=== PATIENT | female | born 1960 | race African-American/Black ===

== ENCOUNTER → 2018-05-28 | Outpatient (CLI) | payer OTHER | LOC: NUC 08:22 | DX: I50.30 Unspecified diastolic (congestive) heart failure (principal) ==

== ENCOUNTER 2019-12-25 08:08 | Day surgery (SDC) | payer OTHER ==
[~2019-12-25] VITALS: Ht 162.6 cm; Wt 77.1 kg
[~2019-12-25 08:08] MED LIST: AMARYL4 MG PO; AMLODIPINE BESY10 MG PO; CELEXA 10 MG TA10 M1 PO; CRESTOR40 MG PO; FISH OIL 1,0001 EAC9 PO; FLONASE 0.05%50 MCG NARES; LISINOPRIL40 MG PO; LORATIDINE 10 M10 M1 PO; METFORMIN HCL500 M3 PO; PLAVIX 75 MG TA75 MG PO; SINGULAIR 10 MG10 M1 PO; TRESIBA100 UNIT/1 SUBQ; VENTOLIN HFA 1818 GM INH; VITAMIN B122500 MCG PO; VITAMIN D325 MC3 PO; XANAX 0.5 MG0.5 M1 PO; ZETIA10 MG PO
[2019-12-25 09:29] VITALS: BP 141/67
[2019-12-25] MEDS ORDERED: NORCO 5-325 TA1 EAC1 PO (10:27)
--- NOTE | 2019-12-25 14:33 | O ---
[facility] [place] [address] OPERATIVE REPORT Name: NOAH BOSS Room #: 150-3 [facility] M.R.#: [id number] Admission: 12/25/19 Attend Phys: Brendan Tang MD Discharge: Date of : 64 Report #: [id number] THIS REPORT FOR: cc: Jill Tolentino MD,Jill Tang,Brendan De MD ~ CC: Jill Tang DATE OF SERVICE: 12/25/2019 PREOPERATIVE DIAGNOSIS: Soft tissue tumor of the back subscapular subfascial. POSTOPERATIVE DIAGNOSIS: Soft tissue tumor of the back subscapular subfascial. PROCEDURE: Excision of deep subfascial right subscapular soft tissue tumor. SURGEON: Brendan Tang MD ANESTHESIA: Local IV sedation. DESCRIPTION OF PROCEDURE: The patient was brought to the operating room and placed on operative table in the left lateral decubitus position. The right upper back was prepped and draped in a sterile fashion after undergoing IV sedation. Skin and subcutaneous tissue overlying this area was infiltrated with 0.5% Marcaine and 1% Xylocaine in a 1:1 mixture. Skin incision was performed over the area using #10 scalpel blade. Hemostasis obtained using electrocautery. Dissection was carried down through the subcutaneous tissue to the fascia, which was then incised and the muscle was then split and dissection was carried down below the fascia and muscle into the subscapular area, soft tissue tumor measuring 5 x 3 cm was completely excised and sent to pathology. The area was further inspected and explored all along the medial edge of the scapula as well as along the superior edge of the scapula. There were no other soft tissue tumors. The area was then closed in layers with 2-0 and 3-0 Vicryl suture in the fascia and a 2-0 Monocryl in the subcutaneous tissue and the skin then closed with a running 4-0 subcuticular Vicryl stitch. Wound was then dressed with Mastisol, 1/2-inch Steri-Strips cut in half, Telfa, 4 x 4 gauze, sponge and tape. The patient was then taken to the recovery room awake, alert, in good condition. Estimated blood loss was approximately 10 mL and the patient tolerated the procedure well. All sponge, lap and instrument counts correct x 2. <ELECTRONICALLY SIGNED> By: Brendan Tang MD 12/25/19 1433 [id number] Brendan Tang MD /nt
[2019-12-25 14:36] VITALS: BP 141/67
--- NOTE | 2019-12-26 15:09 | PATH ---
[facility] [address] [place] [address] PATHOLOGY RPT PROCEDURE Name: NOAH LOONEY Room #: [facility]P [facility] M.R.#: [id number] Admission: 12/25/19 Date of : 64 Discharge: 12/25/19 Report #: [id number] Path Case #: [id number] [facility] Accession Number: [id number] . 01 Material submitted: . scapula - SOFT TISSUE TUMOR RIGHT SUBSCAPULAR. Modifiers: right . 01 Clinical history: . Soft tissue tumor of back . 02 Diagnosis: Soft tissue, "soft tissue tumor right subscapular": - Mature lobulated fibroadipose tissue consistent with lipoma. . (SHA:chucho; 12/26/2019) QL 12/26/2019 1139 Local . 02 Electronically signed: . Win Lamb MD, Pathologist NPI- [id number] . 01 Gross description: . The specimen is received in formalin, labeled "Noah Looney, soft tissue tumor right subscapular". Received is a segment of shaggy bright yellow fibroadipose tissue measuring 4.4 x 2.8 x 1.0 cm in greatest dimensions. The surgical margin is inked. Sectioning reveals yellow-mendoza to pink-mendoza cut surfaces throughout with no grossly distinct nodules or lesions. The specimen is submitted representatively in cassettes A1 and A2. (CAA; 12/25/2019) QA/QA 12/25/2019 1557 Local . 02 Pathologist provided ICD-10: M79.9 . 02 CPT . 772050 Specimen Comment: A courtesy copy of this report has been sent to [phone], [phone] Specimen Comment: [phone] Specimen Comment: Report sent to / DR HOLLOWAY Performed at: 01 [facility] [address] [place] [id number] MD Stefan Bee MD Phone: [phone] Performed at: [address] [id number] [place] [address] PATHOLOGY RPT PROCEDURE Name: NOAH LOONEY Room #: [facility]P [facility] M.R.#: [id number] Admission: 12/25/19 Date of : 64 Discharge: 12/25/19 Report #: [id number] Path Case #: [id number] MD Keaton Mcknight MD Phone: [phone]
== END 2019-12-25 14:30 | disposition home or self-care (01) ==
LOC: OR 08:08 → TBA 08:50 → OR 10:24
DX: D17.1 Benign lipomatous neoplasm of skin and subcutaneous tissue of trunk (principal); I10 Essential (primary) hypertension; E11.9 Type 2 diabetes mellitus without complications; J43.9 Emphysema, unspecified; F32.9 Major depressive disorder, single episode, unspecified; F41.9 Anxiety disorder, unspecified; F17.210 Nicotine dependence, cigarettes, uncomplicated; K21.9 Gastro-esophageal reflux disease without esophagitis; E03.9 Hypothyroidism, unspecified; Z98.890 Other specified postprocedural states; Z79.899 Other long term (current) drug therapy; Z11.59 Encounter for screening for other viral diseases; Z86.73 Personal history of transient ischemic attack (TIA), and cerebral infarction without residual deficits; Z88.0 Allergy status to penicillin; Z88.8 Allergy status to other drugs, medicaments and biological substances; Z85.3 Personal history of malignant neoplasm of breast
CPT/HCPCS: 50010; 50101; 50386; 50403; 56524; 56526; 56528; 62110; 62850; 70005

== ENCOUNTER → 2020-06-09 | Outpatient (CLI) | payer OTHER ==
[~2020-06-09] MED LIST changes: +NORCO 5-325 TA1 EAC1 PO
== END ==
LOC: SJCVCIMAG 05-28 09:07
PROVIDERS: ATTEND Internal Medicine Cardiovascular Disease
DX: R94.31 Abnormal electrocardiogram [ECG] [EKG] (principal); I11.0 Hypertensive heart disease with heart failure; I50.30 Unspecified diastolic (congestive) heart failure; E78.00 Pure hypercholesterolemia, unspecified; E11.9 Type 2 diabetes mellitus without complications; F17.200 Nicotine dependence, unspecified, uncomplicated; Z79.84 Long term (current) use of oral hypoglycemic drugs; Z79.899 Other long term (current) drug therapy; Z82.49 Family history of ischemic heart disease and other diseases of the circulatory system

== ENCOUNTER 2020-08-05 20:54 | Emergency (ER) | payer OTHER ==
[~2020-08-05] VITALS: Ht 162.6 cm; Wt 75.8 kg
[2020-08-05 23:19] VITALS: BP 160/77
== END 2020-08-05 23:20 | disposition home or self-care (01) ==
LOC: ER 20:54
DX: E11.65 Type 2 diabetes mellitus with hyperglycemia (principal); I10 Essential (primary) hypertension; E78.00 Pure hypercholesterolemia, unspecified; E11.9 Type 2 diabetes mellitus without complications; F32.9 Major depressive disorder, single episode, unspecified; F41.9 Anxiety disorder, unspecified; J44.9 Chronic obstructive pulmonary disease, unspecified; K21.9 Gastro-esophageal reflux disease without esophagitis; Z85.3 Personal history of malignant neoplasm of breast; Z86.73 Personal history of transient ischemic attack (TIA), and cerebral infarction without residual deficits; Z98.890 Other specified postprocedural states; Z79.899 Other long term (current) drug therapy; Z79.4 Long term (current) use of insulin; Z88.1 Allergy status to other antibiotic agents; Z88.0 Allergy status to penicillin; Z88.2 Allergy status to sulfonamides

== ENCOUNTER → 2021-06-23 | Outpatient (CLI) | payer OTHER | LOC: SJCVC 13:32 | PROVIDERS: ATTEND Internal Medicine Cardiovascular Disease | DX: I11.0 Hypertensive heart disease with heart failure (principal); I50.30 Unspecified diastolic (congestive) heart failure; E78.00 Pure hypercholesterolemia, unspecified; E78.5 Hyperlipidemia, unspecified; E11.9 Type 2 diabetes mellitus without complications; G45.9 Transient cerebral ischemic attack, unspecified; R07.9 Chest pain, unspecified; F17.210 Nicotine dependence, cigarettes, uncomplicated; Z88.0 Allergy status to penicillin; Z88.8 Allergy status to other drugs, medicaments and biological substances; Z79.84 Long term (current) use of oral hypoglycemic drugs; Z79.899 Other long term (current) drug therapy ==

== ENCOUNTER → 2021-07-08 | Outpatient (CLI) | payer OTHER | LOC: SJCVCIMAG 09:29 | PROVIDERS: ATTEND Internal Medicine Cardiovascular Disease | DX: R00.0 Tachycardia, unspecified (principal); I10 Essential (primary) hypertension; R07.9 Chest pain, unspecified; I42.9 Cardiomyopathy, unspecified; R06.00 Dyspnea, unspecified ==